=== PATIENT | male | born 1985 | race Asian ===

== ENCOUNTER 2022-11-17 09:08 | Emergency (ER) | payer MEDICAID ==
[~2022-11-17] VITALS: Ht 182.9 cm; Wt 181.4 kg
[2022-11-17 09:22] VITALS: BP 195/120
[2022-11-17] MEDS ORDERED: oxyCODONE/APAP 5/325 MG 1 TAB TAB PO ONE (10:10)
[2022-11-17] MEDS ORDERED: SULFAMETH/TRIMETH DS 800/160MG 1 TAB PO ONE (10:20)
--- NOTE | 2022-11-17 10:27 | NUR ---
XEROFORM APPLIED TO WOUND ON L FOOT. BANDAGED WITH ROLLER GAUZE
[2022-11-17 10:35] LABS: BASOPHILS # (AUTO) 0.1 K/uL (0.00-0.22); BASOPHILS % (AUTO) 0.7 % (0.0-2.0); EOSINOPHILS # (AUTO) 0.2 K/uL (0-0.4); EOSINOPHILS % (AUTO) 1.9 % (0.0-4.0); HEMATOCRIT 47.3 % (36-52); HEMOGLOBIN 15.8 g/dL (12.0-18.0); LYMPHOCYTES # (AUTO) 2.1 K/uL (2.0-11.5); LYMPHOCYTES % (AUTO) 24.5 % (20.5-51.1); MEAN CORPUSCULAR HEMOGLOBIN 28 pg (27-31); MEAN CORPUSCULAR HGB CONC 33 g/dL (33-37); MEAN CORPUSCULAR VOLUME 83.6 fL (80-94); MONOCYTES # (AUTO) 0.6 K/uL (0.8-1.0); MONOCYTES % (AUTO) 6.9 % (1.7-9.3); NEUTROPHILS # (AUTO) 5.8 K/uL (1.8-7.7); PLATELET COUNT (AUTO) 291 K/uL (140-450); RED BLOOD CELL COUNT(AUTO) 5.67 MIL/uL (4.20-6.10); RED CELL DISTRIBUTION WIDTH 13.4 % (11.6-13.7); WHITE BLOOD COUNT (AUTO) 8.7 K/uL (4.8-10.8)
--- NOTE | 2022-11-17 10:43 | NUR ---
PT AMBULATED TO ER BED 10
[2022-11-17 11:18] LABS: ALBUMIN 3.9 g/dL (3.4-5.0); ANION GAP 15.7 (8-16); CARBON DIOXIDE 23.6 mmol/L (21-32); CREATININE 1.5 mg/dL (0.6-1.3); POTASSIUM 3.3 mmol/L (3.5-5.1); TOTAL BILIRUBIN 0.5 mg/dL (0.0-1.0)
[2022-11-17] MEDS ORDERED: POTASSIUM CHLORIDE 10 MEQ TABER PO ONE (11:35)
[2022-11-17] MEDS ORDERED: SULF-59 PO (11:53)
[2022-11-17] MEDS ORDERED: IBUP-2213 PO (11:53)
[2022-11-17] MEDS ORDERED: ACET-5629 PO (11:53)
[2022-11-17] MEDS ORDERED: lisinopriL 20 MG TAB PO ONE (12:05)
[2022-11-17] MEDS ORDERED: LISI-487 PO (12:05)
[2022-11-17 12:21] VITALS: BP 195/120
== END 2022-11-17 12:21 | disposition home or self-care (01) ==
LOC: MED 09:08
DX: S91.302A Unspecified open wound, left foot, initial encounter (principal); L03.116 Cellulitis of left lower limb; I10 Essential (primary) hypertension; E87.6 Hypokalemia; Z90.49 Acquired absence of other specified parts of digestive tract; Z79.899 Other long term (current) drug therapy; Z79.2 Long term (current) use of antibiotics; Z79.1 Long term (current) use of non-steroidal anti-inflammatories (NSAID); W20.8XXA Other cause of strike by thrown, projected or falling object, initial encounter; Y93.89 Activity, other specified; Y92.89 Other specified places as the place of occurrence of the external cause; Y99.8 Other external cause status
CPT/HCPCS: 36415; 73630; 80053; 83605; 85025; 85651; 86140; 87040; 99284

== ENCOUNTER 2023-08-16 09:14 | Emergency (ER) | payer MEDICAID, OTHER ==
[~2023-08-16] VITALS: Ht 182.9 cm; Wt 186.0 kg
[~2023-08-16 09:14] MED LIST: ACET-5629 PO; IBUP-2213 PO; LISI-487 PO; SULF-59 PO
[2023-08-16 09:31] VITALS: BP 163/93; PULSE 95; RESP 20; TEMP 97.4; O2SAT 99
[2023-08-16] MEDS ORDERED: KETOROLAC 60 MG/2 ML VIAL IM ONE (11:25)
[2023-08-16] MEDS ORDERED: INDO-323 PO (11:46)
== END 2023-08-16 12:05 | disposition home or self-care (01) ==
LOC: MED 09:14
DX: M25.571 Pain in right ankle and joints of right foot (principal); I10 Essential (primary) hypertension; Z79.899 Other long term (current) drug therapy; Z90.49 Acquired absence of other specified parts of digestive tract
CPT/HCPCS: 96372; 99283; J1885